=== PATIENT | female | born 1990 | race Caucasian/White ===

== ENCOUNTER 2017-06-27 22:49 | Emergency (ER) | payer MEDICAID ==
--- NOTE | 2017-06-27 23:54 | PD ---
HPI Chief Complaint Abdominal pain Date Seen: Jun 27, 2017 Time Seen: 22:49 Travel History International Travel<30 Days: No Contact w/Intl Traveler<30Days: No Known Affected Area: No History of Present Illness HPI Patient is 26-year-old white female at [address] Man. Patient had abdominal pain today and the one minute make sure that was okay, she had no bleeding or leakage of fluid. Weeks Gestation: 19 Para: 0 : 3 Miscarriage: 2 History Obstetric History Obstetric History 2 early losses Social History Alcohol Use: No Tobacco Use: No Substance Abuse: No Review of Systems General / Constitutional: No: Fever, Weight Gain, Chills, Other Eyes: No: Diploplia, Blurred Vision, Visual changes, Pain, Photophobia HENT: No: Headaches, Vertigo, Lightheadedness Cardiovascular: No: Irregular Rhythm, Chest Pain or Discomfort, Palpitations, Tachycardia, Syncope, Varicosities, Edema, Cyanosis Respiratory: No: Cough, Short of Breath, Other Gastrointestinal: Abdominal Pain, No: Nausea, Vomiting, Diarrhea Genitourinary: No: Decreased Urinary Output, Oliguria Musculoskeletal: No: Limited ROM, Weakness, Cramping, Edema, Pain Skin: No Rash, No Itching, No Dryness, No Lumps, No Change in Pigmentation, No Change in Nails, No Alopecia, No Lesions Neurologic: No: Weakness, Dizziness, Syncope, Focal Abnormalities, Coordination Problem, Headache, Slurred Speech, Seizures Psychiatric: No: Depression, Suicidal Ideations, Homicidal Ideation Endocrine: No: Heat Intolerance, Cold Intolerance, Polydipsia, Polyuria, Other Physical Exam Narrative GENERAL: Well-nourished, well-developed patient. SKIN: Warm and dry. HEAD: Normocephalic and atraumatic. EYES: No scleral icterus. No injection or drainage. ENT: No nasal drainage noted. Mucous membranes pink. Airway patent. NECK: Supple, trachea midline. No JVD. CARDIOVASCULAR: Regular rate and rhythm without murmurs, gallops, or rubs. RESPIRATORY: Breath sounds equal bilaterally. No accessory muscle use. BREASTS: Bilateral exam showed no masses , no retractions, no nipple discharge. ABDOMEN/GI: Abdomen soft, non-tender, bowel sounds present, no rebound, no guarding Gravid to [19-] weeks size Fundal Height: [at umbilicus-] GENITOURINARY: External Genitalia: intact and normal in appearance BUS glands: [-] Cervix: [closed-] Dilatation: 0-] Effacement: [thick-] Station: [-3] Membranes: [intact ] Uterine Contractions: [none-] FHT's: 144 EXTREMITIES: No cyanosis or edema. BACK: Nontender without obvious deformity. No CVA tenderness. NEUROLOGICAL: Awake and alert. Motor and sensory grossly within normal limits. Five out of 5 muscle strength in all muscle groups. Normal speech. Data Data Labs urine dip - neg MDM Interpretation(s) Patient 26-year-old white female at 19 weeks presents with abdominal pain. She states the pain is not that bad that she can deal with it but she just wanted to come in and make sure the baby is okay. Cervix is closed thick and high urine dipstick negative her pain is very likely round ligament stress and strain soft tissue pain Plan Plan for patient to be at bedrest smuts possible next 1-2 days, Tylenol liberally for pain, thankfully fluids to hydrate, and the heating pad on lower abdomen on low Diagnosis Diagnosis: Primary Impression: Pain of round ligament complicating , antepartum Disposition: 01 DISCHARGE HOME Condition: Stable Patient Instructions: General Instructions, Nausea and Vomiting in ( ED), Movement (ED), Abdominal Pain in (ED) Departure Forms: Tests/Procedures Sunday Way II, MD Jun 27, 2017 23:54
== END 2017-06-27 23:58 | disposition home or self-care (01) ==
LOC: HOBED 22:49
DX: O26.892 Other specified pregnancy related conditions, second trimester (principal); R10.2 Pelvic and perineal pain; Z3A.19 19 weeks gestation of pregnancy
CPT/HCPCS: 99283

== ENCOUNTER 2017-11-16 00:07 | Emergency (ER) | payer MEDICAID ==
--- NOTE | 2017-11-16 00:53 | PD ---
HPI Chief Complaint leak of fluid Date Seen: Nov 16, 2017 Time Seen: 00:49 Travel History International Travel<30 Days: No Contact w/Intl Traveler<30Days: No Known Affected Area: No History of Present Illness HPI pt is a 27 y/o @ 394/7 weeks present w/ c/o lof of fluid. pt. states through out the day has had increasing d/c and not sure what it is. denies vb/ cramping, +FM Weeks Gestation: 39 Para: 0 : 3 History Past Medical History Medical History: Denies Significant Hx Past Surgical History Surgical History: No Previous Surgery Family History Family History: Negative Social History Alcohol Use: No Tobacco Use: No Substance Abuse: No Review of Systems Except as stated in HPI: all other systems reviewed are Neg Physical Exam Narrative GENERAL: Well-nourished, well-developed patient. SKIN: Warm and dry. HEAD: Normocephalic and atraumatic. EYES: No scleral icterus. No injection or drainage. ENT: No nasal drainage noted. Mucous membranes pink. Airway patent. NECK: Supple, trachea midline. No JVD. CARDIOVASCULAR: Regular rate and rhythm without murmurs, gallops, or rubs. RESPIRATORY: Breath sounds equal bilaterally. No accessory muscle use. ABDOMEN/GI: Abdomen soft, non-tender, bowel sounds present, no rebound, no guarding Gravid FHT's: Category: 1 Reactive:+ Variability: mod Decels: none EXTREMITIES: No cyanosis or edema. BACK: Nontender without obvious deformity. No CVA tenderness. NEUROLOGICAL: Awake and alert. Motor and sensory grossly within normal limits. Five out of 5 muscle strength in all muscle groups. Normal speech. Data Data Vital Signs Reviewed: Yes [facility] Medical Record Reviewed: Yes Plan pt w/o srom as amniosure -. fht reassuring. pt. to be d/c to home. condition d /w pt. pt. given precautions for return. all ? answered. f/u as sched. Diagnosis Diagnosis: Primary Impression: Rupture of membranes with clear amniotic fluid Additional Impression: 39 weeks gestation of Disposition: DISCHARGE HOME Valeriano Richmond Jr., MD Nov 16, 2017 00:53
[2017-11-17] MEDS ORDERED: PREN29TA PO (03:18)
== END 2017-11-16 00:58 | disposition home or self-care (01) ==
LOC: HOBED 00:07
DX: O26.893 Other specified pregnancy related conditions, third trimester (principal); Z3A.39 39 weeks gestation of pregnancy
CPT/HCPCS: 59025; 84112

== ENCOUNTER 2017-11-17 02:26 | Inpatient (IN) | payer MEDICAID ==
[~2017-11-17] VITALS: Ht 170.2 cm; Wt 86.0 kg
[2017-11-17] VITALS (47 sets, daily range): BP systolic 98–133; BP diastolic 52–73; PULSE 62–110; RESP 9–20; TEMP 98–99.8; O2SAT 96–98
[2017-11-17] MEDS: LACTATED RINGER'S 1000 ML INJ 1,000 ML IV SCH ×4 (03:15→16:00)
[2017-11-17] MEDS ORDERED: PREN29TA PO (03:18)
[2017-11-17] MEDS ORDERED: LACTATED RINGER'S 1000 ML INJ 1,000 ML IV PRN (03:57)
[2017-11-17] MEDS ORDERED: OXYTOCIN 30 UNITS-500ML PREMIX 500 ML IV ONE ×2 (04:00→17:30)
[2017-11-17] MEDS ORDERED: MINERAL OIL 10 ML VIAL TOPICAL PRN (04:00)
[2017-11-17] MEDS ORDERED: LIDOCAINE HCL 1% 50 ML VIAL I-DERMAL PRN (04:00)
[2017-11-17] MEDS ORDERED: LIDOCAINE HCL 1% 50 ML VIAL INFIL PRN (04:00)
[2017-11-17] MEDS ORDERED: SODIUM CHLORID 0.9% 500 ML INJ 500 ML IV PRN (04:00)
[2017-11-17] MEDS ORDERED: CITRIC ACID-SODIUM CITRATE LIQ 30 ML UDC PO SCH (04:00)
[2017-11-17 04:12] LABS: AUTOMATED NEUTROPHIL # 10.3 TH/MM3 (1.8-7.7); BASOPHIL # 0.1 TH/MM3 (0-0.2); BASOPHIL % 0.4 % (0.0-2.0); EOSINOPHIL % 0.3 % (0.0-4.0); HEMATOCRIT 34.6 % (35.0-46.0); LYMPH % 11.1 % (9.0-44.0); LYMPHOCYTE # 1.4 TH/MM3 (1.0-4.8); MEAN CELL VOLUME 85.6 FL (80.0-100.0); MEAN CORPUSCULAR HEMOGLOBIN 29.8 PG (27.0-34.0); MEAN CORPUSCULAR HGB CONC 34.8 % (32.0-36.0); MEAN PLATELET VOLUME 10.8 FL (7.0-11.0); MONO % 5.6 % (0.0-8.0); MONOCYTE # 0.7 TH/MM3 (0-0.9); NEUT % 82.6 % (16.0-70.0); PLATELET COUNT 185 TH/MM3 (150-450); RED BLOOD COUNT 4.04 MIL/MM3 (4.00-5.30); RED CELL DISTRIBUTION WIDTH 14.5 % (11.6-17.2); WHITE BLOOD COUNT 12.5 TH/MM3 (4.0-11.0)
[2017-11-17] MEDS ORDERED: SODIUM CHLOR 0.9% 1000 ML INJ 1,000 ML IV PRN (04:17)
--- NOTE | 2017-11-17 04:17 | HHI.HP ---
HPI Chief Complaint Contractions, patient was supposed to come in for induction at 6 AM Date Seen: Nov 17, 2017 Time Seen: 04:10 Travel History International Travel<30 Days: No Contact w/Intl Traveler<30Days: No Known Affected Area: No History of Present Illness HPI Patient is a 27-year-old white female A2 at 40 weeks EDC is today and presents in early labor. She is kun every 3 minutes with some discomfort with those. She was supposed to come in about 4 hours from now for induction of labor but has already presented, heart rate tracing is reactive and contractions seen on the monitor. Patient sees Dr. Man who is planning to come in and assessed the patient couple hours of rupture of membranes at that time Weeks Gestation: 40 Para: 0 : 3 Miscarriage: 2 History Obstetric History Obstetric History 3 early losses Social History Alcohol Use: No Tobacco Use: No Substance Abuse: No Allergies-Medications (Allergen,Severity, Reaction): Coded Allergies: No Known Allergies (Unverified , 11/17/17) Home Meds Reported Medications Vit-Iron Carbonyl ( Plus Iron 29-1 mg) 29 Mg Iron-1 Mg Tab, 1 TAB PO DAILY for Nutritional Supplement, #30 TAB 0 Refills 11/17/17 Review of Systems General / Constitutional: No: Fever, Weight Gain, Chills, Other Eyes: No: Diploplia, Blurred Vision, Visual changes, Pain, Photophobia HENT: No: Headaches, Vertigo, Lightheadedness Cardiovascular: No: Irregular Rhythm, Chest Pain or Discomfort, Palpitations, Tachycardia, Syncope, Varicosities, Edema, Cyanosis Respiratory: No: Cough, Short of Breath, Other Gastrointestinal: Abdominal Pain, No: Nausea, Vomiting, Diarrhea Genitourinary: No: Decreased Urinary Output, Oliguria Musculoskeletal: No: Limited ROM, Weakness, Cramping, Edema, Pain Skin: No Rash, No Itching, No Dryness, No Lumps, No Change in Pigmentation, No Change in Nails, No Alopecia, No Lesions Neurologic: No: Weakness, Dizziness, Syncope, Focal Abnormalities, Coordination Problem, Headache, Slurred Speech, Seizures Psychiatric: No: Depression, Suicidal Ideations, Homicidal Ideation Endocrine: No: Heat Intolerance, Cold Intolerance, Polydipsia, Polyuria, Other Physical Exam Narrative GENERAL: Well-nourished, well-developed patient. SKIN: Warm and dry. HEAD: Normocephalic and atraumatic. EYES: No scleral icterus. No injection or drainage. ENT: No nasal drainage noted. Mucous membranes pink. Airway patent. NECK: Supple, trachea midline. No JVD. CARDIOVASCULAR: Regular rate and rhythm without murmurs, gallops, or rubs. RESPIRATORY: Breath sounds equal bilaterally. No accessory muscle use. BREASTS: Bilateral exam showed no masses , no retractions, no nipple discharge. ABDOMEN/GI: Abdomen soft, non-tender, bowel sounds present, no rebound, no guarding Gravid to [-40] weeks size Fundal Height: [-40] GENITOURINARY: External Genitalia: intact and normal in appearance BUS glands: [-] Cervix: [-] Dilatation: [-2-3] Effacement: [90-] Station: [-2] Presentation: [vtx-] Membranes: [intact ] Uterine Contractions: [q 3 min-] FHT's: Category: [-1] Baseline: [133-] Reactive: [-R] Variability: [-mod] Decels: [none-] EXTREMITIES: No cyanosis or edema. BACK: Nontender without obvious deformity. No CVA tenderness. NEUROLOGICAL: Awake and alert. Motor and sensory grossly within normal limits. Five out of 5 muscle strength in all muscle groups. Normal speech. Caprini VTE Risk Assessment Caprini VTE Risk Assessment: No/Low Risk (score <= 1) Caprini Risk Assessment Model Point Value = 1 Point Value = 2 Point Value = 3 Point Value = 5 Age 41-60 Minor surgery BMI > 25 kg/m2 Swollen legs Varicose veins or History of unexplained or recurrent spontaneous Oral contraceptives or hormone replacement Sepsis (< 1 month) Serious lung disease, including pneumonia (< 1 month) Abnormal pulmonary function Acute myocardial infarction Congestive heart failure (< 1 month) History of inflammatory bowel disease Medical patient at bed rest Age 61-74 Arthroscopic surgery Major open surgery (> 45 min) Laparoscopic surgery (> 45 min) Malignancy Confined to bed (> 72 hours) Immobilizing plaster cast Central venous access Age >= 75 History of VTE Family history of VTE Factor V Leiden Prothrombin [id number] Lupus anticoagulant Anticardiolipin antibodies Elevated serum homocysteine Heparin-induced thrombocytopenia Other congenital or acquired thrombophilia Stroke (< 1 month) Elective arthroplasty Hip, pelvis, or leg fracture Acute spinal cord injury (< 1 month) Prophylaxis Regimen Total Risk Factor Score Risk Level Prophylaxis Regimen 0-1 Low Early ambulation 2 Moderate Order ONE of the following: *Sequential Compression Device (SCD) *Heparin 5000 units SQ BID 3-4 Higher Order ONE of the following medications: *Heparin 5000 units SQ TID *Enoxaparin/Lovenox 40 mg SQ daily (WT < 150 kg, CrCl > 30 mL/min) *Enoxaparin/Lovenox 30 mg SQ daily (WT < 150 kg, CrCl > 10-29 mL/min) *Enoxaparin/Lovenox 30 mg SQ BID (WT < 150 kg, CrCl > 30 mL/min) AND/OR *Sequential Compression Device (SCD) 5 or more Highest Order ONE of the following medications: *Heparin 5000 units SQ TID (Preferred with Epidurals) *Enoxaparin/Lovenox 40 mg SQ daily (WT < 150 kg, CrCl > 30 mL/min) *Enoxaparin/Lovenox 30 mg SQ daily (WT < 150 kg, CrCl > 10-29 mL/min) *Enoxaparin/Lovenox 30 mg SQ BID (WT < 150 kg, CrCl > 30 mL/min) AND *Sequential Compression Device (SCD) Data Data Orders Orders Admit To Inpatient (11/17/17 ) Vital Signs (Adult) .Per protocol (11/17/17 03:57) Heart (11/17/17 03:57) Amnioinfusion (11/17/17 03:57) Urinary Catheter Management .ONCE (11/17/17 03:57) Lactated Ringer's 1000 Ml Inj (Lr 1000 M (11/17/17 03:57) Lactated Ringer's 1000 Ml Inj (Lr 1000 M (11/17/17 03:57) Sodium Chlorid 0.9% 500 Ml Inj (Ns 500 M (11/17/17 04:00) Sodium Chlor 0.9% 1000 Ml Inj (Ns 1000 M (11/17/17 04:17) Lidocaine 1% Inj (50 Ml) (Xylocaine 1% I (11/17/17 04:00) Citric Acid-Sodium Citrate Liq (Bicitra (11/17/17 04:00) Fentanyl Inj (Fentanyl Inj) (11/17/17 04:00) Fentanyl Inj (Fentanyl Inj) (11/17/17 04:00) Complete Blood Count With Diff (11/17/17 03:57) Hold Clot (11/17/17 03:57) Abo/Rh Blood Type (11/17/17 03:57) Urinalysis - C+S If Indicated (11/17/17 03:57) Ob/Psych Drug Screen, Urine (11/17/17 03:57) Type And Screen (11/17/17 03:57) Resp Oxygen Non Rebreathe Mask (11/17/17 ) ^ Epidural / Intrathecal Infus (11/17/17 03:57) Oxytocin 30 Units-500ml Premix (Pitocin (11/17/17 04:00) Lidocaine 1% Inj (50 Ml) (Xylocaine 1% I (11/17/17 04:00) Light Mineral Oil (Muri-Lube Oil) (11/17/17 04:00) Specimen To Be Collected PRN (11/17/17 03:57) Specimen To Be Collected PRN (11/17/17 03:57) Group B Strep: Negative Labs Laboratory Tests Test 11/17/17 03:00 11/17/17 03:15 Assessment/Plan Assessment and Plan Patient is 27-year-old white female at [address] Man 's who presents in early labor. She was a planned induction for later today but is now presented with regular contractions with pain intact membranes and no vaginal bleeding. heart tones reactive. Contractions seen on the monitor. Impression--latent phase labor at 40 weeks Plan-admit to labor and delivery, monitor fetus check patient's laboratory and Dr. Man is planning to come in a couple of hours and rubs the patient's membranes and augment her labor Sunday Way II, MD Nov 17, 2017 04:17
[2017-11-17 04:21] LABS: BILIRUBIN, URINE NEG (NEG); BLOOD, URINE NEG (NEG); GLUCOSE,URINE NEG (NEG); KETONE, URINE NEG (NEG); MUCUS URINE FEW /lpf (OCC); NITRITE,URINE NEG (NEG); SQUAMOUS EPITHELIAL CELL URINE <1 /hpf (0-5); URINE COLOR YELLOW (YELLW/STRAW); URINE LEUKOCYTE ESTERASE NEG (NEG)
[2017-11-17] MEDS ORDERED: fentaNYL 2MCG-BUPIV 0.125% INJ 100 ML ONE ×2 (04:47→08:26)
--- NOTE | 2017-11-17 07:50 | PD.LABORPN ---
Subjective Subjective walking and standing with significant contraction pain handling well Objective Objective 3+/100%/-1 EFW 7 pounds pelvis clinically adequate strip category one UCs every 4 minutes and strong Weeks Gestation: 40 Gest Age Assessed Date: Nov 17, 2017 Gest Age Assessed Time: 07:49 Pt started active labor?: Yes Active labor start date: Nov 17, 2017 Active labor start time: 12:00 Medical induction of labor?: No Artificial rupture of membrane: Yes Artificial ROM date: Nov 17, 2017 Artifical ROM time: 07:50 Assessment/Plan Assessment and Plan anticipate epidural and pitocin Francisca Fontaine MD Nov 17, 2017 07:50
[2017-11-17] MEDS ORDERED: OXYTOCIN 30 UNITS-500ML PREMIX 500 ML IV PRN (08:00)
[2017-11-17] MEDS ORDERED: ePHEDrine/NS 25 MG/5 ML SYRINGE ONE (08:26)
[2017-11-17] MEDS ORDERED: NO SYSTEM NARCOTICS PRN (10:00)
[2017-11-17] MEDS ORDERED: DO NOT ADMINISTER ANTICOAGULANTS PRN (10:00)
[2017-11-17] MEDS ORDERED: fentaNYL 2MCG-BUPIV 0.125% 100 ML EPIDURAL SCH (10:00)
[2017-11-17] MEDS ORDERED: ePHEDrine/NS 25 MG/5 ML SYRINGE IV PUSH PRN (10:00)
[2017-11-17] MEDS ORDERED: LIDOCAINE 2%/EPINEPHrine PF 1:200,000 20ML SDV OTHER ONE (12:00)
[2017-11-17] MEDS ORDERED: LACTATED RINGER'S 1000 ML INJ 1,000 ML IV ONE (12:00)
[2017-11-17] MEDS ORDERED: OXYTOCIN 10 UNIT/ML AMP IV ONE (12:00)
[2017-11-17] MEDS ORDERED: ONDANSETRON HCL 4 MG/2 ML VIAL IV ONE (12:00)
[2017-11-17] MEDS ORDERED: ceFAZolin INJ 1,000 MG VIAL IV ONE (12:00)
[2017-11-17] MEDS ORDERED: PHENYLEPH/NS 1000 MCG/10 ML SYR IV ONE (12:00)
[2017-11-17] MEDS ORDERED: TERBUTALINE INJ 1 MG/ML AMP ONE (16:05)
[2017-11-17] MEDS ORDERED: ACETAMINOPHEN 1000 MG/100 ML 100 ML IV ONE ×2 (16:21→18:00)
[2017-11-17] MEDS ORDERED: MORPHINE SULFATE PF 5 MG/10 ML VIAL ONE (16:21)
[2017-11-17] MEDS ORDERED: KETOROLAC TROMETHAMINE 60 MG/2 ML (IM) VIAL IM PRN (17:30)
[2017-11-17] MEDS ORDERED: SODIUM CHLORIDE 0.9% FLUSH 10 ML FLUSH IV FLUSH PRN (17:30)
[2017-11-17] MEDS ORDERED: oxyCODONE/ACETAMINOPHEN 5 MG/325 MG TAB PO PRN (17:30)
[2017-11-17] MEDS ORDERED: ONDANSETRON HCL 4 MG/2 ML VIAL IV PUSH PRN (17:30)
[2017-11-17] MEDS ORDERED: DOCUSATE SODIUM 50 MG/SENNA 8.6 MG TAB PO PRN (17:30)
[2017-11-17] MEDS ORDERED: SIMETHICONE 80 MG CHEWABLE TAB PO PRN (17:30)
[2017-11-17] MEDS ORDERED: EPIDURAL-DO NOT ADMINISTER ANTICOAGULANTS PRN (20:00)
[2017-11-17] MEDS ORDERED: EPIDURAL-DIPHENHYDRAMINE HCL 50 MG CAP PO PRN (20:00)
[2017-11-17] MEDS ORDERED: EPIDURAL-NO SYSTEMIC NARCOTICS PRN (20:00)
[2017-11-17] MEDS ORDERED: EPIDURAL-DIPHENHYDRAMINE HCL 50 MG/ML VIAL IV PUSH PRN (20:00)
[2017-11-17] MEDS ORDERED: EPIDURAL-NALOXONE HCL 0.4 MG/ML AMP IV PUSH PRN (20:00)
[2017-11-17] MEDS ORDERED: SODIUM CHLORIDE 0.9% FLUSH 10 ML FLUSH IV FLUSH SCH (21:00)
[2017-11-18] MEDS: LACTATED RINGER'S 1000 ML INJ 1,000 ML IV SCH ×3 (00:45→20:13)
[2017-11-18] MEDS ORDERED: OXYTOCIN 30 UNITS-500ML PREMIX 500 ML IV PRN (03:30)
[2017-11-18 04:00] VITALS: BP 97/55; PULSE 85; RESP 16; TEMP 98.8
[2017-11-18] MEDS: oxyCODONE/ACETAMINOPHEN 5 MG/325 MG TAB PO PRN ×3 (04:43→20:04)
[2017-11-18] MEDS: IBUPROFEN 600 MG TAB PO PRN ×3 (04:43→20:04)
[2017-11-18 06:13] LABS: AUTOMATED NEUTROPHIL # 10.8 TH/MM3 (1.8-7.7); BASOPHIL % 0.2 % (0.0-2.0); EOSINOPHIL % 0.3 % (0.0-4.0); HEMATOCRIT 33.5 % (35.0-46.0); HEMOGLOBIN 11.3 GM/DL (11.6-15.3); LYMPH % 8.9 % (9.0-44.0); LYMPHOCYTE # 1.1 TH/MM3 (1.0-4.8); MEAN CELL VOLUME 86.5 FL (80.0-100.0); MEAN CORPUSCULAR HEMOGLOBIN 29.1 PG (27.0-34.0); MEAN CORPUSCULAR HGB CONC 33.6 % (32.0-36.0); MEAN PLATELET VOLUME 10.7 FL (7.0-11.0); MONO % 5.3 % (0.0-8.0); MONOCYTE # 0.7 TH/MM3 (0-0.9); NEUT % 85.3 % (16.0-70.0); PLATELET COUNT 175 TH/MM3 (150-450); RED BLOOD COUNT 3.87 MIL/MM3 (4.00-5.30); RED CELL DISTRIBUTION WIDTH 14.4 % (11.6-17.2); WHITE BLOOD COUNT 12.6 TH/MM3 (4.0-11.0)
[2017-11-18 08:00] VITALS: BP 80/54; PULSE 81; TEMP 97.8; O2SAT 97
--- NOTE | 2017-11-18 08:27 | HHI.OB ---
Subjective Post Operative Day: 1 Remarks doing well, trying to breastfeed Objective Vitals/I&O Vital Signs Date Time Temp Pulse Resp B/P (MAP) Pulse Ox O2 Delivery O2 Flow Rate FiO2 11/18/17 04:00 98.8 85 16 11/18/17 04:00 97/55 (69) 11/17/17 23:50 98.3 11/17/17 23:50 62 16 98/59 (72) 11/17/17 20:15 99.8 73 18 11/17/17 20:15 110/60 (77) 11/17/17 18:59 98/56 (70) 11/17/17 18:50 76 19 100/59 (73) 11/17/17 18:50 98 11/17/17 18:30 84 18 107/53 (71) 96 11/17/17 18:15 92 9 97 11/17/17 18:15 18 11/17/17 18:15 107/57 (74) 11/17/17 18:00 90 20 101/55 (70) 97 11/17/17 17:50 9 11/17/17 17:50 98 11/17/17 17:50 93 17 11/17/17 17:45 102/62 (75) 11/17/17 17:35 98.0 18 98 11/17/17 17:35 99/56 (70) 11/17/17 17:35 98 11/17/17 16:05 98 11/17/17 16:04 105 11/17/17 16:04 133/63 (86) 11/17/17 16:00 110 11/17/17 15:45 18 11/17/17 15:40 89 11/17/17 15:35 91 11/17/17 15:30 87 11/17/17 15:30 95 108/66 (80) 11/17/17 15:00 76 99/52 (68) 11/17/17 15:00 77 11/17/17 14:46 98.4 11/17/17 14:34 18 11/17/17 14:30 86 11/17/17 14:30 90 112/65 (81) 11/17/17 14:10 88 11/17/17 14:05 88 11/17/17 14:00 100 3/8/18 13:57 18 11/17/17 13:55 90 102/62 (75) 11/17/17 13:55 93 11/17/17 13:50 85 11/17/17 13:45 76 11/17/17 13:40 72 11/17/17 13:35 79 11/17/17 13:30 80 11/17/17 13:30 89 108/67 (81) 11/17/17 13:25 89 110/64 (79) 11/17/17 13:25 79 11/17/17 13:20 84 11/17/17 13:15 73 11/17/17 13:15 77 113/73 (86) 11/17/17 13:00 18 11/17/17 13:00 98.0 11/17/17 12:55 81 11/17/17 12:50 78 11/17/17 12:46 70 105/63 (77) 11/17/17 12:45 73 11/17/17 12:40 81 11/17/17 12:35 82 11/17/17 12:30 68 108/60 (76) 11/17/17 12:30 63 11/17/17 12:25 66 11/17/17 12:20 70 11/17/17 12:16 72 108/62 (77) 11/17/17 12:15 66 11/17/17 12:15 18 11/17/17 12:10 68 Result Diagram: 11/18/17 0443 Objective Remarks GENERAL: Well-nourished, well-developed patient. CARDIOVASCULAR: Regular rate and rhythm without murmurs, gallops, or rubs. RESPIRATORY: Breath sounds equal bilaterally. No accessory muscle use. ABDOMEN/GI: Abdomen soft, non-tender, bowel sounds present. Incision: Clean, dry and intact. Fundus: Firm, non-tender at umbilicus. GENITOURINARY: Light to moderate bleeding. EXTREMITIES: No cyanosis or edema, non-tender, without signs of DVT. Medications and IVs Current Medications Medications (Trade) Dose Ordered Sig/Daniele Route Start Time Stop Time Status Last Admin Lactated Ringer's 1,000 ml @ 125 mls/hr Q8H IV 11/17/17 03:57 11/17/17 13:00 Lactated Ringer's 1,000 ml @ 3,000 mls/hr Q20M PRN IV 11/17/17 03:57 Sodium Chloride 1,000 ml @ 100 mls/hr Q10H PRN IV 11/17/17 04:17 (Xylocaine 1% Inj (50 ml)) 0.1 ml UNSCH X1 PRN I-DERMAL 11/17/17 04:00 11/20/17 03:59 (Bicitra Liq) 30 ml SENIOR [employer] DEVELOPER PO 11/17/17 04:00 11/21/17 03:59 11/17/17 18:11 (fentaNYL INJ) 50 mcg Q1H PRN IV PUSH 11/17/17 04:00 (fentaNYL INJ) 100 mcg Q1H PRN IV PUSH 11/17/17 04:00 (Xylocaine 1% Inj (50 ml)) 10 ml UNSCH X1 PRN INFIL 11/17/17 04:00 11/19/17 03:59 (Muri-Lube Oil) 10 ml UNSCH PRN TOPICAL 11/17/17 04:00 Oxytocin 500 ml @ 0 mls/hr TITRATE PRN IV 11/17/17 08:00 11/17/17 13:28 Miscellaneous Information No systemic narcotics to be given except... UNSCH PRN .XX 11/17/17 10:00 11/18/17 09:59 Miscellaneous Information DO NOT ADMINISTER ANY ANTICOAGUL... UNSCH PRN .XX 11/17/17 10:00 11/18/17 09:59 Fentanyl/ Bupivacaine HCl 100 ml @ 0 mls/hr TITRATE EPIDURAL 11/17/17 10:00 (ePHEDrine/NS 25 MG/5 ML SYR) 10 mg UNSCH PRN IV PUSH 11/17/17 10:00 11/18/17 09:59 Lactated Ringer's 1,000 ml @ 100 mls/hr Q10H IV 11/17/17 22:28 11/18/17 18:27 11/18/17 00:45 Oxytocin 500 ml @ 100 mls/hr UNSCH X1 PRN IV 11/18/17 03:30 11/19/17 03:29 (NS Flush) 2 ml BID IV FLUSH 11/17/17 21:00 (NS Flush) 2 ml UNSCH PRN IV FLUSH 11/17/17 17:30 (Mylicon Chew) 80 mg QID PRN PO 11/17/17 17:30 (Motrin) 600 mg Q6H PRN PO 11/17/17 17:30 11/18/17 04:43 (Toradol Inj) 60 mg UNSCH X1 PRN IM 11/17/17 17:30 11/18/17 17:29 (Percocet 5-325 Mg) 1 tab Q4H PRN PO 11/17/17 17:30 11/18/17 04:43 (Percocet 5-325 Mg) 2 tab Q4H PRN PO 11/17/17 17:30 (Carol-Colace) 2 tab Q12H PRN PO 11/17/17 17:30 (M-M-R Ii Inj) 0.5 ml ONCE ONCE SQ 11/18/17 16:00 11/18/17 16:01 (Boostrix Inj) 0.5 ml ONCE ONCE IM 11/18/17 16:00 11/18/17 16:01 (Zofran Inj) 4 mg Q6H PRN IV PUSH 11/17/17 17:30 Miscellaneous Information NO SYSTEMIC NARCOTICS TO BE GIVEN FO... UNSCH PRN .XX 11/17/17 20:00 11/18/17 19:59 (Narcan Inj) 0.4 mg UNSCH PRN IV PUSH 11/17/17 20:00 11/18/17 19:59 (Benadryl Inj) 25 mg Q6H PRN IV PUSH 11/17/17 20:00 11/18/17 19:59 11/17/17 23:00 (Benadryl) 50 mg Q6H PRN PO 11/17/17 20:00 11/18/17 19:59 Miscellaneous Information ALL NURSING DEPARTMENTS UNSCH PRN .XX 11/17/17 20:00 11/18/17 19:59 Assessment/Plan Assessment and Plan Patient is 27-year-old white female at [address] Man 's who presents in early labor. s/p C/S female infant POD #1 post op care, OOB, analgesia prn Discharge Planning routine Attending Attestation seen by Priscilla Pascual MD Nov 18, 2017 08:27
[2017-11-18 08:30] VITALS: RESP 18
[2017-11-18 12:00] VITALS: BP 82/50; PULSE 75; RESP 18; TEMP 98.1; O2SAT 97
[2017-11-18 13:30] VITALS: BP 93/61; PULSE 89
[2017-11-18] MEDS ORDERED: MEASLES, MUMPS, RUBELLA VACCINE 0.5 ML VIAL SQ ONE (16:00)
[2017-11-18] MEDS ORDERED: DIPHTH/TETANUS/ACEL PERTUSSIS (BOOSTER) 0.5 ML VIAL/PFS IM ONE (16:00)
[2017-11-18 21:00] VITALS: BP 83/54; PULSE 77; RESP 18; TEMP 98.7; O2SAT 97
[2017-11-19] MEDS: IBUPROFEN 600 MG TAB PO PRN ×2 (06:34→13:26)
[2017-11-19] MEDS: oxyCODONE/ACETAMINOPHEN 5 MG/325 MG TAB PO PRN ×2 (06:34→13:26)
[2017-11-19 08:00] VITALS: BP 90/52; PULSE 18; PULSE 82; RESP 18; TEMP 97.8; O2SAT 98
--- NOTE | 2017-11-19 10:02 | HHI.OB ---
Subjective Post Operative Day: 2 Remarks doing well, Objective Vitals/I&O Vital Signs Date Time Temp Pulse Resp B/P (MAP) Pulse Ox O2 Delivery O2 Flow Rate FiO2 11/19/17 08:00 82 11/19/17 08:00 90/52 (65) 11/19/17 08:00 97.8 18 18 98 11/18/17 21:00 98.7 77 18 83/54 (64) 97 11/18/17 13:30 89 93/61 (72) 11/18/17 12:00 98.1 18 97 11/18/17 12:00 82/50 (61) 11/18/17 12:00 75 Result Diagram: 11/18/17 0443 Objective Remarks GENERAL: Well-nourished, well-developed patient. CARDIOVASCULAR: Regular rate and rhythm without murmurs, gallops, or rubs. RESPIRATORY: Breath sounds equal bilaterally. No accessory muscle use. ABDOMEN/GI: Abdomen soft, non-tender, bowel sounds present. Incision: Clean, dry and intact. Fundus: Firm, non-tender at umbilicus. GENITOURINARY: Light to moderate bleeding. EXTREMITIES: No cyanosis or edema, non-tender, without signs of DVT. Medications and IVs Current Medications Medications (Trade) Dose Ordered Sig/Daniele Route Start Time Stop Time Status Last Admin Lactated Ringer's 1,000 ml @ 125 mls/hr Q8H IV 11/17/17 03:57 11/17/17 13:00 Lactated Ringer's 1,000 ml @ 3,000 mls/hr Q20M PRN IV 11/17/17 03:57 Sodium Chloride 1,000 ml @ 100 mls/hr Q10H PRN IV 11/17/17 04:17 (Xylocaine 1% Inj (50 ml)) 0.1 ml UNSCH X1 PRN I-DERMAL 11/17/17 04:00 11/20/17 03:59 (Bicitra Liq) 30 ml INTERMOD[employer] CUSTOMER SERVICE PO 11/17/17 04:00 11/21/17 03:59 11/17/17 18:11 (fentaNYL INJ) 50 mcg Q1H PRN IV PUSH 11/17/17 04:00 (fentaNYL INJ) 100 mcg Q1H PRN IV PUSH 11/17/17 04:00 (Muri-Lube Oil) 10 ml UNSCH PRN TOPICAL 11/17/17 04:00 Oxytocin 500 ml @ 0 mls/hr TITRATE PRN IV 11/17/17 08:00 11/17/17 13:28 Fentanyl/ Bupivacaine HCl 100 ml @ 0 mls/hr TITRATE EPIDURAL 11/17/17 10:00 (NS Flush) 2 ml BID IV FLUSH 11/17/17 21:00 (NS Flush) 2 ml UNSCH PRN IV FLUSH 11/17/17 17:30 (Mylicon Chew) 80 mg QID PRN PO 11/17/17 17:30 (Motrin) 600 mg Q6H PRN PO 11/17/17 17:30 11/19/17 06:34 (Percocet 5-325 Mg) 1 tab Q4H PRN PO 11/17/17 17:30 11/19/17 06:34 (Percocet 5-325 Mg) 2 tab Q4H PRN PO 11/17/17 17:30 (Carol-Colace) 2 tab Q12H PRN PO 11/17/17 17:30 (Zofran Inj) 4 mg Q6H PRN IV PUSH 11/17/17 17:30 Assessment/Plan Assessment and Plan Patient is 27-year-old white female at [address] Man's who presents in early labor. s/p C/S female POD #2 post op care, OOB, analgesia prn Discharge Planning routine Attending Attestation seen by Priscilla Pascual MD Nov 19, 2017 10:02
[2017-11-19] MEDS ORDERED: OXYC1TAB63 PO (14:14)
[2017-11-19] MEDS ORDERED: IBUP-232 PO (14:14)
--- NOTE | 2017-11-19 14:14 | HHI.DCPOC ---
Discharge Care Plan Your Health Problems Are: Pelvic pain Report Symptoms to Your Doctor -Temperature above 100.5 degrees -Redness, of incision or excessive or foul smelling drainage -Unusual pain or calf pain -Increased vaginal bleeding -Painful or difficulty urinating -Feelings of extreme sadness or anxiety after 2 weeks Goals to Promote Your Health * To prevent worsening of your condition and complications * To maintain your health at the optimal level Directions to Meet Your Goals Take your medications as prescribed Follow your dietary instruction Follow activity as directed Ensure plenty of rest for recovery Drink fluids for hydration Keep your appointments as scheduled Take your immunizations and boosters as scheduled If your symptoms worsen call your PCP, if no PCP go to Urgent Care Center or Emergency Room Smoking is Dangerous to Your Health. Avoid second hand smoke Call the 24-hour crisis hotline for domestic abuse at Priscilla Aguilar MD Nov 19, 2017 14:14
[2017-11-19 15:52] VITALS: BP 90/52; PULSE 82; RESP 18; TEMP 97.8; O2SAT 98
--- NOTE | 2017-11-24 09:34 | PD.OB.DELI ---
Procedure Note Section Procedure Pre Op Diagnosis: (1) Labor and delivery affected by incomplete rotation of head Post Op Diagnosis: (1) delivery delivered Performed by Francisca Man Procedure: Primary Low Transverse Sec Indication for delivery: malposition Informed consent obtained: For anesthesia, For procedure Confirmed correct: Patient, Procedure, Site, Time-out taken Anesthesia: Epidural Medication prior to procedure: As documented in eMAR Monitoring during procedure: Blood pressure monitoring, clinical services specialist, doppler, Pulse oximetry Urinary catheter: Inserted using sterile technique, To dependent drainage Sterile preparation: Duraprep, In usual fashion Position: Supine with wedge to right side Operative Features Skin Incision: Pfannenstiel Uterine Incision: Low transverse w/knife / blunt ext Membranes Ruptured: Previously Presentation: Other (occiput tranverse with assynclitism) Delivery date: Nov 17, 2017 Delivery time: 17:00 Delivery of : Uneventful Infant: Female One Minute : 8 Five Minute : 9 Weight: 7 Status of : Viable, Cord blood, Nursery present Placenta delivered: Intact Medications: Antibiotics, Oxytocin Estimated blood loss: 500 Procedure tolerated: Well Maternal Condition: Stable Condition: Stable Procedure in detail dictated Francisca Man MD Nov 24, 2017 09:34
--- NOTE | 2017-11-24 09:57 | MP ---
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 Baby in right occiput transverse position. PROCEDURE PERFORMED: Primary low transverse segment section. ANESTHESIA: Epidural with Duramorph. SURGEON: Francisca Man MD HEATING UNIT MECHANIC: Mary Pedersen MS3 FINDINGS: A living female in ROT position with Apgars of 8 at 1 and 9 at 5 weighing 7 pounds, was delivered without difficulty and a significant asynclitic caput. Bleeding was average. Uterus, tubes and ovaries were unremarkable. Sponge, instrument and needle count were correct and mom and baby tolerated the procedure well. DESCRIPTION OF PROCEDURE: Procedure was explained to the patient and the father of the baby. Risks, benefits and expectations and alternatives were reviewed. She was taken to the back, placed under Duramorph and increased epidural anesthesia, and prepped and draped in the usual sterile fashion in the supine position with weight off the vena cava. A timeout was performed with all in attendance. A Curtis catheter had already been in placed. Her sequentials were started and she received 2 grams of Ancef. After assuring adequate analgesia, a Pfannenstiel incision was made with a knife and carried down through to the rectus fascia. The rectus fascia was incised in an elliptical fashion and taken off the rectus muscle. The rectus muscle was in the middle. The parietal peritoneum was entered sharply. A bladder flap was created off the lower uterine segment and an incision was made into the intrauterine cavity. The was delivered with the findings as noted above. A 45-second cord clamp delay was performed. Then, cord gas and cord blood were obtained. The placenta was delivered manually intact with a 3-vessel cord. The uterus was exteriorized, cleaned with a lap sponge and closed with chromic in a running interlocking fashion with a second horizontal imbricating layer. It was replaced in the abdominal cavity and copious irrigation was performed. Then the rectus muscle and peritoneum were closed in a running single fashion. Then the fascia was closed with Vicryl in a running noninterlocking fashion and the subcutaneous layer was closed with 3-0 plain and the skin was closed with 4-0 Vicryl on a Bruce needle. Estimated blood loss was 500 mL. Sponge, instrument and needle count were correct. She tolerated the procedure well and she went to the recovery room in stable condition. MD CAROLE Maxwell/GEORGINA , 09:38 AM , 09:56 AM
== END 2017-11-19 17:24 | disposition home or self-care (01) | DRG 766 ==
LOC: H2EB 02:26 → H1EA 19:14
PROVIDERS: ADMIT Obstetrics & Gynecology; ATTEND Obstetrics & Gynecology
PROC: 10D00Z1 Extraction of Products of Conception, Low, Open Approach (ICD-10-PCS; principal; 2017-11-17)
PROC: 10907ZC Drainage of Amniotic Fluid, Therapeutic from Products of Conception, Via Natural or Artificial Opening (ICD-10-PCS; 2017-11-17)
DX: O32.4XX0 Maternal care for high head at term, not applicable or unspecified (principal); O32.8XX0 Maternal care for other malpresentation of fetus, not applicable or unspecified; Z37.0 Single live birth; Z3A.40 40 weeks gestation of pregnancy
CPT/HCPCS: 59025; 80307; 81001; 82805; 84112; 85025; 85461; 86850; 86900; 86901; 90384; 90707; G0481; J0131; J0690; J1200; J2274; J2370; J2405; J2590; J2790; J3010; J3105; J7120